=== PATIENT | male | born 1970 | race Caucasian/White ===

== ENCOUNTER 2020-01-13 11:46 | Emergency (ER) | payer MEDICAID ==
[~2020-01-13] VITALS: Ht 188 cm; Wt 100.0 kg
[2020-01-13 12:47] VITALS: BP 141/103
== END 2020-01-13 13:02 | disposition home or self-care (01) ==
LOC: ER 11:47
DX: U07.1 COVID-19 (principal)
CPT/HCPCS: 36415; 87635; 99283

== ENCOUNTER 2020-07-07 10:38 | Emergency (ER) | payer MEDICAID ==
[~2020-07-07] VITALS: Ht 188 cm; Wt 85.6 kg
[2020-07-07] MEDS ORDERED: normal saline 1000ML IV soln IV ONE (10:55)
[2020-07-07 11:42] LABS: BASOPHILS # (AUTO) 0.1 X10'3 (0-0.2); BASOPHILS % (AUTO) 0.8 % (0-1); EOSINOPHILS % (AUTO) 0.4 % (0-6); HEMATOCRIT 46.7 % (42.0-52.0); HEMOGLOBIN 16.2 g/dl (14.0-17.9); LYMPHOCYTES # (AUTO) 2.8 X10'3 (1.1-4.8); MEAN CORPUSCULAR HEMOGLOBIN 31.9 PG (27.0-31.0); MEAN CORPUSCULAR HGB CONC 34.7 g/dL (33.0-36.5); MEAN CORPUSCULAR VOLUME 91.9 FL (78-98); MEAN PLATELET VOLUME 8.3 FL (7.4-10.4); MONOCYTES # (AUTO) 0.6 X10'3 (0-0.9); MONOCYTES % (AUTO) 7.2 % (2-12); NEUTROPHILS # (AUTO) 5.2 X10'3 (1.8-7.7); NEUTROPHILS % (AUTO) 59.6 % (42-75); PLATELET COUNT 286 X10'3 (140-440); RED BLOOD COUNT 5.09 X10'6 (4.70-6.10); RED CELL DISTRIBUTION WIDTH 13.1 % (11.5-14.5); WHITE BLOOD COUNT 8.7 X10'3 (4.5-11.0)
[2020-07-07 12:08] LABS: CLARITY,URINE CLEAR (Clear); COLOR,URINE STRAW (Yellow); GLUCOSE, URINE >=1000 mg/dl (Neg); KETONES,URINE NEGATIVE (Neg); LEUKOCYTE ESTERASE ,URINE NEGATIVE (Neg); NITRITES, URINE NEGATIVE (Neg); OCCULT BLOOD,URINE TRACE-INTACT (Neg); PROTEIN,URINE NEGATIVE (Neg); UA COLLECTION TYPE VOIDED; UROBILINOGEN,URINE 0.2 E.U/dL (0.2-1.0)
[2020-07-07] MEDS ORDERED: ketorolac trometh. 30mg/ml inj. IV ONE (12:10)
[2020-07-07] MEDS ORDERED: methylPREDNISolone sod succ 125mg/2ml vial IV ONE (12:10)
[2020-07-07 12:14] LABS: SQUAMOUS EPITHELIAL CELL,UR FEW /LPF (FEW)
[2020-07-07 12:16] LABS: BACTERIA,URINE FEW /HPF (Neg); RBC,URINE 0-2 /HPF (0-2); WBC,URINE 0-4 /HPF (0-4)
[2020-07-07 12:31] LABS: HIV ANTIBODY 1&2 RAPID NON-REACTIVE (Neg)
[2020-07-07 12:40] VITALS: BP 156/103
[2020-07-07] MEDS ORDERED: MYCOL30CR TP (12:58)
[2020-07-07 13:13] LABS: ALANINE AMINOTRANSFERASE 42 U/L (12-78); ALBUMIN 4.2 G/DL (3.4-5.0); ALBUMIN/GLOBULIN RATIO 1.1 (1.1-1.5); ALKALINE PHOSPHATASE 122 IU/L (46-116); ANION GAP 10 (8-16); ASPARTATE AMINO TRANSFERASE 25 U/L (10-37); BILIRUBIN,TOTAL 0.6 MG/DL (0.1-1.0); BLOOD UREA NITROGEN 15 MG/DL (7-18); BUN/CREATININE RATIO 12.9 (5.4-32.0); C-REACTIVE PROTEIN 0.35 MG/DL (0.0-0.5); CALCIUM 9.6 MG/DL (8.5-10.1); CHLORIDE 96 MMOL/L (99-107); CREATININE 1.16 MG/DL (0.60-1.10); POTASSIUM 4.4 MMOL/L (3.5-5.1); SODIUM 134 MMOL/L (135-145); TOTAL CARBON DIOXIDE 28.1 MMOL/L (24-32); eGFR 67 ML/MIN
[2020-07-07 13:33] LABS: GLUCOSE 490 MG/DL (70-104)
== END 2020-07-07 13:25 | disposition home or self-care (01) ==
LOC: ER 10:39
DX: M25.561 Pain in right knee (principal); M25.562 Pain in left knee; R53.1 Weakness; R73.9 Hyperglycemia, unspecified; R63.4 Abnormal weight loss; F12.90 Cannabis use, unspecified, uncomplicated; Z23 Encounter for immunization; Z79.899 Other long term (current) drug therapy
CPT/HCPCS: 36415; 71045; 80053; 81001; 84145; 85025; 85651; 86140; 86592; 86703; 87491; 87591; 96361; 96374; 96375; 99284; J1885; J2930; J7030

== ENCOUNTER 2020-10-07 12:15 | Emergency (ER) | payer MEDICAID ==
[~2020-10-07] VITALS: Ht 188 cm; Wt 76.0 kg
[~2020-10-07 12:15] MED LIST: MYCOL30CR TP
[2020-10-07 12:24] VITALS: BP 150/94
[2020-10-07 16:30] LABS: CLARITY,URINE CLEAR (Clear); COLOR,URINE YELLOW (Yellow); GLUCOSE, URINE >=1000 mg/dl (Neg); KETONES,URINE TRACE mg/dl (Neg); LEUKOCYTE ESTERASE ,URINE NEGATIVE (Neg); NITRITES, URINE NEGATIVE (Neg); OCCULT BLOOD,URINE NEGATIVE (Neg); PH,URINE 5.5 (4.8-8.0); PROTEIN,URINE NEGATIVE (Neg); UROBILINOGEN,URINE 0.2 E.U/dL (0.2-1.0)
[2020-10-07 16:32] LABS: UA COLLECTION TYPE NON-SPECIFIED
[2020-10-07 16:34] LABS: BASOPHILS # (AUTO) 0.1 X10'3 (0-0.2); BASOPHILS % (AUTO) 0.8 % (0-1); EOSINOPHILS # (AUTO) 0.1 X10'3 (0-0.9); HEMATOCRIT 48.8 % (42.0-52.0); HEMOGLOBIN 16.7 g/dl (14.0-17.9); LYMPHOCYTES % (AUTO) 34.2 % (21-51); MEAN CORPUSCULAR HEMOGLOBIN 32.1 PG (27.0-31.0); MEAN CORPUSCULAR HGB CONC 34.2 g/dL (33.0-36.5); MEAN CORPUSCULAR VOLUME 94.1 FL (78-98); MEAN PLATELET VOLUME 8.6 FL (7.4-10.4); MONOCYTES # (AUTO) 0.7 X10'3 (0-0.9); MONOCYTES % (AUTO) 7.7 % (2-12); NEUTROPHILS % (AUTO) 56.3 % (42-75); PLATELET COUNT 300 X10'3 (140-440); RED BLOOD COUNT 5.19 X10'6 (4.70-6.10); RED CELL DISTRIBUTION WIDTH 13.2 % (11.5-14.5); WHITE BLOOD COUNT 8.8 X10'3 (4.5-11.0)
[2020-10-07 16:37] LABS: BACTERIA,URINE NONE SEEN /HPF (Neg); HYALINE CASTS 0-3 /LPF (NEGATIVE); MUCUS STRANDS FEW /LPF (Neg); RBC,URINE NONE SEEN /HPF (0-2); SQUAMOUS EPITHELIAL CELL,UR NONE SEEN /LPF (FEW); WBC,URINE 0-4 /HPF (0-4)
[2020-10-07 16:40] LABS: PARTIAL THROMBOPLASTIN TIME 23 SECONDS (22-32)
[2020-10-07 16:42] LABS: ALANINE AMINOTRANSFERASE 52 U/L (12-78); ALBUMIN 4.9 G/DL (3.4-5.0); ALBUMIN/GLOBULIN RATIO 1.4 (1.1-1.5); ALKALINE PHOSPHATASE 98 IU/L (46-116); ANION GAP 11 (8-16); ASPARTATE AMINO TRANSFERASE 30 U/L (10-37); BILIRUBIN,TOTAL 0.4 MG/DL (0.1-1.0); BLOOD UREA NITROGEN 21 MG/DL (7-18); BUN/CREATININE RATIO 20.6 (5.4-32.0); CALCIUM 9.5 MG/DL (8.5-10.1); CHLORIDE 102 MMOL/L (99-107); CREATININE 1.02 MG/DL (0.60-1.10); GLUCOSE 261 MG/DL (70-104); SODIUM 140 MMOL/L (135-145); TOTAL CARBON DIOXIDE 27.5 MMOL/L (24-32); TOTAL PROTEIN 8.5 G/DL (6.4-8.2); eGFR 77 ML/MIN
[2020-10-07 16:51] LABS: CREATINE KINASE 285 U/L (39-308)
== END 2020-10-07 17:04 | disposition home or self-care (01) ==
LOC: ER 12:15
DX: R73.9 Hyperglycemia, unspecified (principal); F12.10 Cannabis abuse, uncomplicated
CPT/HCPCS: 36415; 80053; 81001; 82550; 84443; 85025; 85610; 85730; 99283

== ENCOUNTER 2021-08-16 22:30 | Emergency (ER) | payer MEDICAID ==
[~2021-08-16] VITALS: Ht 188 cm; Wt 79.5 kg
[2021-08-16] MEDS ORDERED: normal saline 1000ML IV soln IV ONE (22:45)
[2021-08-16] MEDS ORDERED: ondansetron/PF 4mg/2ml inj IV ONE (22:45)
[2021-08-16 23:02] LABS: CLARITY,URINE CLEAR (Clear); COLOR,URINE YELLOW (Yellow); GLUCOSE, URINE NEGATIVE (Neg); KETONES,URINE 40 mg/dl (Neg); LEUKOCYTE ESTERASE ,URINE NEGATIVE (Neg); NITRITES, URINE NEGATIVE (Neg); OCCULT BLOOD,URINE NEGATIVE (Neg); PH,URINE 6.5 (4.8-8.0); PROTEIN,URINE TRACE mg/dl (Neg); UROBILINOGEN,URINE 0.2 E.U/dL (0.2-1.0)
[2021-08-16] MEDS ORDERED: famotidine/PF 10 mg/ml inj IV ONE (23:05)
[2021-08-16] MEDS ORDERED: pantoprazole 40MG/NS 100ML BAG 100 ML IV ONE (23:05)
[2021-08-16 23:08] LABS: UA COLLECTION TYPE CLN CATCH MIDSTREAM
[2021-08-16 23:11] LABS: BACTERIA,URINE NONE SEEN /HPF (Neg); RBC,URINE 0-2 /HPF (0-2); SQUAMOUS EPITHELIAL CELL,UR FEW /LPF (FEW); WBC,URINE NONE SEEN /HPF (0-4)
[2021-08-16 23:33] LABS: BASOPHILS # (AUTO) 0.1 X10'3 (0-0.2); BASOPHILS % (AUTO) 1.1 % (0-1); EOSINOPHILS % (AUTO) 0.1 % (0-6); HEMATOCRIT 44.8 % (42.0-52.0); HEMOGLOBIN 15.4 g/dl (14.0-17.9); LYMPHOCYTES # (AUTO) 1.5 X10'3 (1.1-4.8); LYMPHOCYTES % (AUTO) 15.4 % (21-51); MEAN CORPUSCULAR HEMOGLOBIN 31.1 PG (27.0-31.0); MEAN CORPUSCULAR HGB CONC 34.4 g/dL (33.0-36.5); MEAN CORPUSCULAR VOLUME 90.5 FL (78-98); MONOCYTES # (AUTO) 0.5 X10'3 (0-0.9); MONOCYTES % (AUTO) 5.3 % (2-12); NEUTROPHILS # (AUTO) 7.4 X10'3 (1.8-7.7); NEUTROPHILS % (AUTO) 78.1 % (42-75); PLATELET COUNT 297 X10'3 (140-440); RED BLOOD COUNT 4.95 X10'6 (4.70-6.10); RED CELL DISTRIBUTION WIDTH 13.2 % (11.5-14.5); WHITE BLOOD COUNT 9.4 X10'3 (4.5-11.0)
[2021-08-16 23:48] LABS: ALANINE AMINOTRANSFERASE 28 U/L (12-78); ALBUMIN 4.9 G/DL (3.4-5.0); ALBUMIN/GLOBULIN RATIO 1.3 (1.1-1.5); ALKALINE PHOSPHATASE 67 IU/L (46-116); ANION GAP 17 (8-16); ASPARTATE AMINO TRANSFERASE 18 U/L (10-37); BILIRUBIN,TOTAL 0.9 MG/DL (0.1-1.0); BLOOD UREA NITROGEN 14 MG/DL (7-18); BUN/CREATININE RATIO 12.6 (5.4-32.0); CALCIUM 9.9 MG/DL (8.5-10.1); CHLORIDE 101 MMOL/L (99-107); CREATININE 1.11 MG/DL (0.60-1.10); GLUCOSE 248 MG/DL (70-104); POTASSIUM 4.4 MMOL/L (3.5-5.1); SODIUM 143 MMOL/L (135-145); TOTAL PROTEIN 8.6 G/DL (6.4-8.2); eGFR 70 ML/MIN
[2021-08-16 23:50] LABS: MAGNESIUM 1.8 MG/DL (1.5-2.4)
--- NOTE | 2021-08-17 00:06 | NUR ---
Please call Wade for a ride [phone] or his dad at [phone]
[2021-08-17] MEDS ORDERED: PANT-47 PO (01:54)
[2021-08-17] MEDS ORDERED: ONDA8TAB13 PO (01:54)
--- NOTE | 2021-08-17 01:54 | NUR ---
THIS RN CALLED PT'S FATHER FOR A RIDE HOME. PT'S FATHER STATED HE WAS ON HIS WAY.
[2021-08-17] MEDS ORDERED: proCHLORperazine 10 MG/2 ml inj IV ONE (02:00)
[2021-08-17 02:07] VITALS: BP 140/76
== END 2021-08-17 02:09 | disposition home or self-care (01) ==
LOC: ER 22:31
DX: R11.2 Nausea with vomiting, unspecified (principal); R53.1 Weakness; E11.9 Type 2 diabetes mellitus without complications; Z20.822 Contact with and (suspected) exposure to COVID-19; F17.200 Nicotine dependence, unspecified, uncomplicated; F12.90 Cannabis use, unspecified, uncomplicated; K21.9 Gastro-esophageal reflux disease without esophagitis; Z79.899 Other long term (current) drug therapy
CPT/HCPCS: 36415; 71045; 80053; 81001; 83605; 83735; 83880; 84145; 84484; 85025; 87040; 87502; 87503; 87635; 93005; 96361; 96374; 96375; 99285; C9113; C9803; J0780; J2405; J3490; J7030; 96365

== ENCOUNTER 2022-10-30 02:49 | Emergency (ER) | payer MEDICAID ==
[~2022-10-30] VITALS: Ht 188 cm; Wt 70.4 kg
[~2022-10-30 02:49] MED LIST changes: -MYCOL30CR TP; +NYST30CR35 TP; +ONDA8TAB13 PO; +PANT-47 PO
[2022-10-30 02:58] VITALS: BP 163/85; PULSE 103; RESP 18; TEMP 96.9; O2SAT 100
--- NOTE | 2022-10-30 03:39 | NUR ---
Patient got up and told security he was leaving because nobody [id number] help him, he has now left the hospital
== END 2022-10-30 04:11 | disposition left against medical advice (07) ==
LOC: ER 02:50
DX: R11.10 Vomiting, unspecified (principal); Z53.21 Procedure and treatment not carried out due to patient leaving prior to being seen by health care provider
CPT/HCPCS: 99281

== ENCOUNTER 2023-11-14 09:51 | Outpatient (CLI) | payer MEDICAID ==
[~2023-11-14 09:51] MED LIST changes: +ONDA-245 PO; -ONDA8TAB13 PO
== END 2023-11-14 23:59 | disposition home or self-care (01) ==
LOC: CARD DIAG 09:51
PROVIDERS: ATTEND Family Medicine
DX: R42 Dizziness and giddiness (principal)
CPT/HCPCS: 93306

== ENCOUNTER 2023-11-15 10:27 | Outpatient (CLI) | payer MEDICAID | END 2023-11-15 23:59 | disposition home or self-care (01) | LOC: MRI 10:27 | PROVIDERS: ATTEND Family Medicine | DX: R42 Dizziness and giddiness (principal) | CPT/HCPCS: 70551 ==